=== PATIENT | female | born 2000 | race Caucasian/White ===

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

== ENCOUNTER 2021-01-20 22:31 | Emergency (ER) | payer MEDICAID ==
[~2021-01-20] VITALS: Ht 162.6 cm; Wt 47.7 kg
[~2021-01-20 22:31] MED LIST changes: -DOXY100C2 PO; -SULF1TAB49 PO
[2021-01-20 22:58] VITALS: BP 129/82
[2021-01-21 00:27] LABS: CLARITY,URINE SLIGHTLY CLOUDY (Clear); COLOR,URINE YELLOW (Yellow); GLUCOSE, URINE NEGATIVE (Neg); KETONES,URINE >=80 mg/dl (Neg); OCCULT BLOOD,URINE SMALL (Neg); PROTEIN,URINE NEGATIVE (Neg); UA COLLECTION TYPE CLN CATCH MIDSTREAM
[2021-01-21 00:28] LABS: LEUKOCYTE ESTERASE ,URINE TRACE (Neg); NITRITES, URINE NEGATIVE (Neg); UROBILINOGEN,URINE 0.2 E.U/dL (0.2-1.0)
[2021-01-21 00:35] LABS: BACTERIA,URINE FEW /HPF (Neg); RBC,URINE 0-2 /HPF (0-2); SQUAMOUS EPITHELIAL CELL,UR MODERATE /LPF (FEW)
[2021-01-21 00:40] LABS: URINE HCG NEGATIVE (NEG)
[2021-01-21] MEDS ORDERED: CEFD300C3 PO (00:48)
== END 2021-01-21 00:58 | disposition home or self-care (01) ==
LOC: ER 22:31
DX: N12 Tubulo-interstitial nephritis, not specified as acute or chronic (principal); J45.909 Unspecified asthma, uncomplicated; Z88.0 Allergy status to penicillin; Z88.1 Allergy status to other antibiotic agents; Z79.899 Other long term (current) drug therapy
CPT/HCPCS: 81001; 81003; 81025; 87088; 99283

== ENCOUNTER 2023-06-24 16:22 | Outpatient (CLI) | payer MEDICAID | END 2023-06-24 23:59 | disposition home or self-care (01) | LOC: RAD 16:22 | PROVIDERS: ATTEND Nurse Practitioner Obstetrics & Gynecology | DX: O09.92 Supervision of high risk pregnancy, unspecified, second trimester (principal); Z3A.21 21 weeks gestation of pregnancy | CPT/HCPCS: 76805 ==